=== PATIENT | female | born 1985 | race Caucasian/White ===

== ENCOUNTER 2017-11-11 23:51 | Inpatient (IN) | payer MEDICAID ==
[2017-11-11] MEDS ORDERED: LACTATED RINGER'S 1,000 ML IV (23:59)
[2017-11-12] MEDS ORDERED: LIDOCAINE 1% (MPF) 30 ML INJ INJ
[2017-11-12] MEDS ORDERED: IBUPROFEN 600 MG TAB PO
[2017-11-12] MEDS ORDERED: BUTORPHANOL 2 MG INJ IV
[2017-11-12] MEDS ORDERED: AMPICILLIN 2 GM/NS (PMX) 100 ML IV
[2017-11-12] MEDS: OXYTOCIN 30 UNITS/LR 500 ML IV ×4 (00:19→10:37)
[2017-11-12] MEDS: IBUPROFEN 600 MG TAB PO ×5 (00:59→23:40)
[2017-11-12] MEDS ORDERED: MISOPROSTOL 200 MCG TAB PR ×2 (01:00)
[2017-11-12] MEDS ORDERED: OXYTOCIN 30 UNITS/LR 500 ML IV ×2 (01:00)
[2017-11-12] MEDS ORDERED: METHYLERGONOVINE 0.2 MG INJ IM ×2 (01:00)
[2017-11-12] MEDS ORDERED: OXYCODONE/ACETAMINOPHEN (5/325) TAB PO (01:00)
[2017-11-12] MEDS ORDERED: CARBOPROST 250 MCG INJ IM ×2 (01:00)
[2017-11-12] MEDS ORDERED: LANOLIN 7 GM TUBE TOP (01:00)
[2017-11-12] MEDS ORDERED: ALBUTEROL HFA 8 GM INHALER INH (01:00)
[2017-11-12 01:01] LABS: ADD MAN DIFF? NO
[2017-11-12 01:04] LABS: WHITE BLOOD COUNT 8.8 10^3/ul (4.8-10.8)
[2017-11-12 01:04] LABS: BASOPHILS % 0.2 % (0.0-2.0); EOSINOPHILS % 0.3 % (0.0-7.0); HEMATOCRIT 29.9 % (37.0-47.0); HEMOGLOBIN 9.3 g/dl (12.0-16.0); LYMPHOCYTES # 1.5 10^3/ul (0.8-2.9); LYMPHOCYTES % 17.1 % (15.0-51.0); MEAN CORPUSCULAR HEMOGLOBIN 24.7 pg (29.0-33.0); MEAN CORPUSCULAR HGB CONC 31.1 g/dl (32.0-37.0); MEAN CORPUSCULAR VOLUME 79.5 fl (82.0-101.0); MEAN PLATELET VOLUME 11.1 fl (7.4-10.4); MONOCYTE # 0.7 10^3/ul (0.3-0.9); MONOCYTES % 7.9 % (0.0-11.0); NEUTROPHIL # 6.5 10^3/ul (1.6-7.5); NEUTROPHILS % 73.8 % (39.0-77.0); PLATELET COUNT 147 10^3/UL (140-415); RED BLOOD COUNT 3.76 10^6/ul (4.20-5.40); RED CELL DISTRIBUTION WIDTH 14.6 % (11.5-14.5)
[2017-11-12 01:26] LABS: INR 0.96; PARTIAL THROMBOPLASTIN TIME 27.7 Sec (25.0-35.0); PROTIME 12.9 Sec (11.9-14.9)
[2017-11-12 02:00] LABS: HEPATITIS B SURFACE ANTIGEN NEGATIVE (NEGATIVE)
[2017-11-12] MEDS: LACTATED RINGER'S 1,000 ML IV* (03:00)
[2017-11-12 04:31] LABS: AMPHETAMINE/METHAMPHETAMINE Negative (NEGATIVE); BARBITURATES Negative (NEGATIVE); BENZODIAZEPINES Negative (NEGATIVE); CANNABINOIDS Negative (NEGATIVE); COCAINE Negative (NEGATIVE); OPIATES Negative (NEGATIVE)
[2017-11-12] MEDS: RANITIDINE 150 MG TAB PO ×2 (09:15→21:28)
[2017-11-12 15:35] LABS: RAPID PLASMA REAGIN NONREACTIVE (NR)
[2017-11-13] MEDS: IBUPROFEN 600 MG TAB PO ×4 (05:24→23:25)
[2017-11-13 08:23] LABS: ADD MAN DIFF? NO
[2017-11-13] MEDS: RANITIDINE 150 MG TAB PO ×2 (08:23→21:10)
[2017-11-13 08:27] LABS: WHITE BLOOD COUNT 12.5 10^3/ul (4.8-10.8)
[2017-11-13 08:27] LABS: BASOPHIL # 0.1 10^3/ul (0.0-0.1); BASOPHILS % 0.5 % (0.0-2.0); EOSINOPHILS # 0.1 10^3/ul (0.0-0.5); EOSINOPHILS % 1.1 % (0.0-7.0); HEMATOCRIT 25.3 % (37.0-47.0); HEMOGLOBIN 8.1 g/dl (12.0-16.0); LYMPHOCYTES # 2.4 10^3/ul (0.8-2.9); LYMPHOCYTES % 19.3 % (15.0-51.0); MEAN CORPUSCULAR HEMOGLOBIN 24.7 pg (29.0-33.0); MEAN CORPUSCULAR VOLUME 77.1 fl (82.0-101.0); MEAN PLATELET VOLUME 11.9 fl (7.4-10.4); MONOCYTE # 1.1 10^3/ul (0.3-0.9); NEUTROPHIL # 8.7 10^3/ul (1.6-7.5); NEUTROPHILS % 69.5 % (39.0-77.0); PLATELET COUNT 161 10^3/UL (140-415); RED BLOOD COUNT 3.28 10^6/ul (4.20-5.40); RED CELL DISTRIBUTION WIDTH 14.8 % (11.5-14.5)
[2017-11-13] MEDS: INFLUENZA VIRUS VACCINE 0.5 ML (DISPENSING) IM* (09:00)
[2017-11-13 12:16] LABS: RUBELLA ANTIBODY - IGG 2.94 index
[2017-11-14] MEDS: IBUPROFEN 600 MG TAB PO ×2 (05:21→12:27)
[2017-11-14] MEDS: DIPHTH/TET/ACEL PERTUSS (ADULT) 0.5 ML VIAL IM* (07:08)
[2017-11-14] MEDS: RANITIDINE 150 MG TAB PO (09:06)
[2017-11-16 12:32] LABS: RUBELLA ANTIBODY - IGM <20.00 AU/mL
== END 2017-11-14 16:25 | disposition home or self-care (01) | DRG 775 ==
LOC: OBT 23:51 → L-D 11-12 → PP1 11-12 02:52
PROVIDERS: Obstetrics & Gynecology
PROC: 10E0XZZ Delivery of Products of Conception, External Approach (ICD-10-PCS; principal; 2017-11-12)
DX: O69.81X0 Labor and delivery complicated by cord around neck, without compression, not applicable or unspecified (principal); Z37.0 Single live birth; Z3A.39 39 weeks gestation of pregnancy
CPT/HCPCS: 80307; 85025; 85610; 85730; 86592; 86762; 86850; 86900; 86901; 87340; 90686